=== PATIENT | female | born 1955 | race Two or more races ===

== ENCOUNTER 2017-03-25 00:34 | Inpatient (IN) | payer MEDICAID, OTHER ==
[~2017-03-25] VITALS: Ht 160 cm; Wt 62.0 kg
[2017-03-25] MEDS ORDERED: MORPHINE SULFATE 4 MG/ML SYRG IV ONE (07:00)
[2017-03-25] MEDS ORDERED: ONDANSETRON HCL 4 MG/2 ML VIAL IV ONE (07:00)
[2017-03-25 07:12] LABS: Basophils # (auto) 0 uL; Basophils % (auto) 0.3 % (0.0-2.0); CONDITION Y; Eosinophils # (auto) 0.2 uL; Eosinophils % (auto) 2.6 % (0.0-7.0); Hematocrit 40.1 % (36.0-46.0); Hemoglobin 13.7 g/dL (12.2-16.2); Lymphocytes # (auto) 2.1 uL; Lymphocytes % (auto) 28.4 % (10.0-50.0); Mean Corpuscular Hemoglobin 30.9 pg (28.0-32.0); Mean Corpuscular Hgb Conc. 34.2 g/dL (32.0-36.0); Mean Corpuscular Volume 90.4 fL (80.0-100.0); Mean Platelet Volume 7.9 fL (7.4-10.4); Monocytes # (auto) 0.5 uL; Monocytes % (auto) 6.7 % (0.0-12.0); Neutrophils # (auto) 4.6 uL; Platelet Count (auto) 286 10^3/uL (140-450); Red Cell Distribution Width 13.7 % (11.6-16.0); White Blood Cell 7.4 10^3/uL (4.4-10.8)
[2017-03-25 07:43] LABS: Albumin 3.9 g/dL (3.4-5.0); BUN/Creatinine Ratio 8.4; Bilirubin, Total 0.4 mg/dL (0.2-1.0); Calcium 8.9 mg/dL (8.5-10.1); Potassium 3.8 mmol/L (3.5-5.1); Total Protein 7.3 g/dL (6.4-8.2)
[2017-03-25] MEDS ORDERED: PROMETHAZINE HCL 25 MG/ML 1ML IV PRN (08:30)
[2017-03-25] MEDS ORDERED: ALBUTEROL SULF 2.5 MG/0.5ML(0.5%) NEB SOLN NEB PRN (08:30)
[2017-03-25] MEDS ORDERED: LORazepam 0.5 MG TAB PO PRN (08:30)
[2017-03-25] MEDS ORDERED: NITROGLYCERIN 0.4 MG SL TAB SL PRN (08:30)
[2017-03-25] MEDS ORDERED: LACTULOSE 20Gm/30ML SOLN PO PRN (08:30)
[2017-03-25] MEDS ORDERED: TEMAZEPAM 15 MG CAP PO PRN (08:30)
[2017-03-25] MEDS ORDERED: MORPHINE SULFATE 4 MG/ML SYRG IV PRN (08:30)
[2017-03-25] MEDS ORDERED: ACETAMINOPHEN 500 MG TAB PO PRN (08:30)
[2017-03-25] MEDS ORDERED: MORPHINE SULF INJ 2 MG/ML SYRINGE 1ML IV PRN (08:30)
[2017-03-25 09:01] VITALS: BP 143/87
[2017-03-25] MEDS: SODIUM CHLORIDE 0.9% 1,000 ML IV SCH ×2 (09:42→22:12)
[2017-03-25] MEDS: ALBUTEROL SULF 2.5 MG/0.5ML(0.5%) NEB SOLN NEB SCH ×2 (11:48→19:10)
[2017-03-25 13:00] VITALS: BP 145/71
[2017-03-25] MEDS: HYDROcodone-ACET 5/325MG TAB PO PRN ×2 (15:12→22:12)
[2017-03-25 17:42] VITALS: BP 112/81
[2017-03-25 22:16] VITALS: BP 142/77
[2017-03-26] MEDS: ALBUTEROL SULF 2.5 MG/0.5ML(0.5%) NEB SOLN NEB SCH ×4 (00:29→19:09)
[2017-03-26 05:20] VITALS: BP 135/72
[2017-03-26 07:50] VITALS: BP 148/74
[2017-03-26] MEDS: HYDROcodone-ACET 5/325MG TAB PO PRN (08:17)
[2017-03-26 09:00] VITALS: BP 148/74
[2017-03-26] MEDS: SODIUM CHLORIDE 0.9% 1,000 ML IV SCH ×2 (09:19→22:31)
[2017-03-26 12:06] VITALS: BP 135/86
[2017-03-26 16:44] VITALS: BP 112/76
[2017-03-26 23:41] VITALS: BP 135/81
[2017-03-27] MEDS: ALBUTEROL SULF 2.5 MG/0.5ML(0.5%) NEB SOLN NEB SCH ×3 (00:35→12:30)
[2017-03-27 05:05] VITALS: BP 131/78
[2017-03-27 09:00] VITALS: BP 138/77
[2017-03-27] MEDS: HYDROcodone-ACET 5/325MG TAB PO PRN (10:17)
[2017-03-27] MEDS: SODIUM CHLORIDE 0.9% 1,000 ML IV SCH (10:18)
[2017-03-27 13:00] VITALS: BP 132/82
== END 2017-03-27 18:30 | disposition home or self-care (01) | DRG 135 ==
LOC: ER 00:45 → EDBD 00:45 → TELE 00:46 → EEVIPCON 00:46 → TELE-WESTW 13:01
PROVIDERS: ADMIT Internal Medicine; ATTEND Internal Medicine Pulmonary Disease
DX: S22.41XA Multiple fractures of ribs, right side, initial encounter for closed fracture (principal); J44.9 Chronic obstructive pulmonary disease, unspecified; I10 Essential (primary) hypertension; S00.11XA Contusion of right eyelid and periocular area, initial encounter; F17.210 Nicotine dependence, cigarettes, uncomplicated; F10.20 Alcohol dependence, uncomplicated; G89.29 Other chronic pain; Z80.0 Family history of malignant neoplasm of digestive organs; Z82.49 Family history of ischemic heart disease and other diseases of the circulatory system; Y08.89XA Assault by other specified means, initial encounter; Y93.89 Activity, other specified; Y92.89 Other specified places as the place of occurrence of the external cause; Z98.51 Tubal ligation status; Z79.899 Other long term (current) drug therapy
CPT/HCPCS: 36415; 70450; 70486; 71020; 71111; 80053; 85025; 94640; 94761; 96374; 96375; J2405

== ENCOUNTER 2020-02-16 18:53 | Emergency (ER) | payer MEDICAID ==
[~2020-02-16] VITALS: Ht 162.6 cm; Wt 57.6 kg
[2020-02-16 19:40] VITALS: BP 157/94
== END 2020-02-17 03:21 | disposition left against medical advice (07) ==
LOC: ER 19:02
DX: R21 Rash and other nonspecific skin eruption (principal); Z53.21 Procedure and treatment not carried out due to patient leaving prior to being seen by health care provider

== ENCOUNTER 2020-02-19 16:02 | Inpatient (IN) | payer MEDICAID ==
[~2020-02-19] VITALS: Ht 162.6 cm; Wt 56.0 kg
[2020-02-19] MEDS ORDERED: SODIUM CHLORIDE 0.9% 1,000 ML IV ONE (16:25)
[2020-02-19 17:03] LABS: Basophils # (auto) 0.1 10 ^3/uL (0-0.2); Basophils % (auto) 0.6 % (0.0-2.0); Eosinophils # (auto) 0.1 10 ^3/uL (0-0.8); Hematocrit 39.6 % (36.0-46.0); Hemoglobin 13.4 g/dL (12.2-16.2); Lymphocytes # (auto) 1.5 10 ^3/uL (0.4-5.4); Mean Corpuscular Hgb Conc. 33.8 g/dL (32.0-36.0); Mean Corpuscular Volume 88.8 fL (80.0-100.0); Monocytes % (auto) 7.8 % (0.0-12.0); Neutrophils # (auto) 9.7 10 ^3/uL (1.6-8.6); Neutrophils % (auto) 78.6 % (37.0-80.0); Platelet Count (auto) 301 10^3/uL (140-450); Red Blood Cells 4.46 10^6/uL (4.0-5.20); Red Cell Distribution Width 13.1 % (11.8-14.3); White Blood Cell 12.3 10^3/uL (4.4-10.8)
[2020-02-19 17:15] LABS: Albumin 3.7 g/dL (3.4-5.0); BUN/Creatinine Ratio 10.1; Potassium 3.7 mmol/L (3.5-5.1)
[2020-02-19] MEDS ORDERED: CLINDAMYCIN 600MG IV 50 ML IV ONE (17:15)
[2020-02-19] MEDS ORDERED: cefTRIAXone 1GM/50ML D5W 50 ML IV ONE (17:15)
[2020-02-19 17:18] LABS: Bilirubin, Total 0.6 mg/dL (0.2-1.0)
[2020-02-19] MEDS ORDERED: HYDROcodone-ACET 5/325MG TAB PO PRN (20:30)
[2020-02-19] MEDS ORDERED: DOCUSATE SOD 100 MG CAP PO PRN (20:30)
[2020-02-19] MEDS ORDERED: LORazepam 0.5 MG TAB PO PRN (20:30)
[2020-02-19] MEDS ORDERED: MORPHINE SULF INJ 2 MG/ML SYRINGE 1ML IV PRN ×2 (20:30)
[2020-02-19] MEDS ORDERED: VANCOMYCIN PER PHARMACY 1,000 MG IV SCH (20:30)
[2020-02-19] MEDS ORDERED: ONDANSETRON HCL 4 MG/2 ML VIAL IV PRN (20:30)
[2020-02-19] MEDS ORDERED: NITROGLYCERIN 0.4 MG SL TAB SL PRN ×2 (20:30)
[2020-02-19 21:23] LABS: Cholesterol 172 mg/dL (< 200)
[2020-02-19 21:25] LABS: HDL Cholesterol 66 mg/dL (40-59); LDL Cholesterol 80 mg/dL (< 100); Triglycerides 89 mg/dL (< 150)
--- NOTE | 2020-02-19 22:00 | NUR ---
Telemetry admit from ER G[facility] admitted to Telemetry unit after SBAR received. Patient oriented to IVY CASTELLANOS, RN primary RN, MST unit, room 218, bed B, and unit policies regarding patient care and visiting hours. Patient now on continuous telemetry monitoring, tele box #34 and telemetry reading on arrival to unit is normal SR . Patient weighed by bed scale and encouraged to call if they need something. All questions and concerns addressed, patient verbalized understanding. Note: Patient able to turn in bed independently, bed in lowest locked position, side rails up x2, and call light within reach. Will continue to monitor Q1hr PRN.
[2020-02-19] MEDS: VANCOMYCIN 1GM/250ML 250 ML IV SCH (23:22)
[2020-02-19] MEDS: FAMOTIDINE (10MG/ML) 2ML VL IV SCH (23:23)
[2020-02-19] MEDS: MORPHINE SULF INJ 2 MG/ML SYRINGE 1ML IV PRN (23:23)
[2020-02-20] MEDS ORDERED: PIPERACILLIN-TAZOB 3.375GM 3.375 GM in D5W 5% 100 ML IV SCH ×2
[2020-02-20] MEDS: PIPERACILLIN-TAZOB 3.375GM 100 ML IV SCH ×2 (01:18→06:56)
[2020-02-20] MEDS ORDERED: SODIUM CHLORIDE 0.9% 1,000 ML IV SCH (03:15)
[2020-02-20] MEDS ORDERED: cloNIDine HCL 0.1 MG TAB PO PRN (03:15)
[2020-02-20 05:13] VITALS: BP 127/72
[2020-02-20] MEDS ORDERED: IPRATROPIUM BROM 0.5 MG/2.5ML INH SOL NEB SCH (06:00)
[2020-02-20] MEDS ORDERED: FUROSEMIDE 20 MG/2 ML VIAL IV SCH (06:00)
[2020-02-20 06:25] LABS: Basophils # (auto) 0 10 ^3/uL (0-0.2); Basophils % (auto) 0.4 % (0.0-2.0); Eosinophils # (auto) 0.2 10 ^3/uL (0-0.8); Eosinophils % (auto) 2.3 % (0.0-7.0); Hematocrit 35.1 % (36.0-46.0); Hemoglobin 11.9 g/dL (12.2-16.2); Lymphocytes # (auto) 2.1 10 ^3/uL (0.4-5.4); Lymphocytes % (auto) 23.1 % (10.0-50.0); Mean Corpuscular Hgb Conc. 33.9 g/dL (32.0-36.0); Mean Corpuscular Volume 88.5 fL (80.0-100.0); Monocytes # (auto) 1.1 10 ^3/uL (0-1.3); Monocytes % (auto) 12.2 % (0.0-12.0); Neutrophils # (auto) 5.6 10 ^3/uL (1.6-8.6); Nucleated Red Blood Cells % 0.1 %; Platelet Count (auto) 258 10^3/uL (140-450); Red Blood Cells 3.97 10^6/uL (4.0-5.20); Red Cell Distribution Width 13.1 % (11.8-14.3)
[2020-02-20 06:38] LABS: INR 1.01 (0.9-1.15); Partial Thromboplastin Time 28.5 sec (23.64-32.05); Potassium 3.9 mmol/L (3.5-5.1)
[2020-02-20 06:51] LABS: BUN/Creatinine Ratio 8.8; Bilirubin, Total 0.8 mg/dL (0.2-1.0); Calcium 8.3 mg/dL (8.5-10.1); Magnesium 2.4 mg/dL (1.6-2.6); Phosphorus 3.2 mg/dL (2.5-4.90); Total Protein 6.6 g/dL (6.4-8.2)
[2020-02-20] MEDS: MORPHINE SULF INJ 2 MG/ML SYRINGE 1ML IV PRN ×2 (07:43→22:12)
[2020-02-20 08:30] VITALS: BP 113/53
[2020-02-20] MEDS ORDERED: cefTRIAXone 1GM/50ML D5W 50 ML IV ONE (10:15)
[2020-02-20] MEDS: FAMOTIDINE (10MG/ML) 2ML VL IV SCH (10:20)
[2020-02-20] MEDS: ENOXAPARIN SOD 40 MG/0.4 ML SYRINGE SC SCH (10:21)
--- NOTE | 2020-02-20 11:06 | NUR ---
WOUND CARE NOTE: Wound care in to see patient per wound care request regarding multiple wounds that are noted present on admission. Bedside nurse took photograph of patient's wounds upon admission for reference. Patient is 64 y/o female with admitting diagnosis of Rt Lower Extremity Cellulitis. Patient is resting in bed in Rm. 218A. Patient is awake, alert and oriented. She's self turning and repositioning and her Nima score is 20. Noted patient's RLE has multi open and scabbed wounds with yellow blistering at wound edges. Mira wound is bright red and edematous, minimal serous drainage noted, no odor noted. Patient reported that she has had the wounds for couple of days.She added that she got bitten by spider twice. The first one was a week a go but nothing like this happened. She continued further that On Sunday morning she got bitten by spider again and noted wounds on her Rt. leg at night time. Cleansed patient's RLE wounds with wound cleanser, patted dry with gauze, applied Thera honey gel, covered with abd pad and secured with stockinette. Two dry scabbed wounds also noted to her L lateral knee, area is clean and dry, left open to air. All wound stats documented in nurse intervention wound assessment part. Patient tolerated well and denies any other wound. RECOMMENDATION: Nursing to continue Daily/PRN dressing change to RLE wounds per MD order, Dietary consult due to presence of wounds, elevate affected extremity on pillows; continue monitoring by wound care while patient is hospitalized. Addendum: 02/20/20 at 1447 by Selena Beaulieu RN Amended: Links added.
[2020-02-20 12:11] LABS: Urine WBC None Seen /hpf (0 - 5)
[2020-02-20 12:33] VITALS: BP 97/55
[2020-02-20 12:40] LABS: Urine Bacteria NONE SEEN /hpf (None Seen); Urine Blood Negative /uL (Negative); Urine Specific Gravity 1.007 (1.001-1.035)
[2020-02-20 12:42] LABS: Alcohol, Urine < 3.0 mg/dL (0-10); Amphetamine Screen, Urine NEGATIVE (NEGATIVE); Barbiturate Scree,Urine NEGATIVE (NEGATIVE); Benzodiazephine Screen, Urine NEGATIVE (NEGATIVE); Cannabinoid Screen, Urine NEGATIVE (NEGATIVE); Cocaine Screen, Urine NEGATIVE (NEGATIVE); Opiate Scree,Urine NEGATIVE (NEGATIVE); Phencyclidine Screen, Urine NEGATIVE (NEGATIVE)
--- NOTE | 2020-02-20 15:55 | NUR ---
ss consult Per ss consult advanced directive information. Patient has been provided with advanced directive. Addendum: 02/20/20 at 1556 by Cynthia DORANTES Amended: Links added.
--- NOTE | 2020-02-20 16:34 | NUR ---
PATIENT COMPLAINING OF ACID REFLUX ALONG WITH NECK TIGHTENING AND HEADACHE. EKG PERFORMED AND SHOWN TO Shanthi QIU. RECEIVED NEW ORDERS FOR PROTONIX. WILL FOLLOW THROUGH
[2020-02-20] MEDS ORDERED: PANTOPRAZOLE 40 MG TAB PO ONE (16:45)
[2020-02-20] MEDS: ALUM & MAG HYDROX-SIMETH LIQ(MAALOX) 30 ML PO PRN (17:00)
[2020-02-20 17:05] VITALS: BP 116/68
--- NOTE | 2020-02-20 19:15 | NUR ---
OPENING SHIFT NOTE: ASSUMED CARE OF PATIENT. PATIENT IS ALERT AND ORIENTED X 4, NO S/S OF SOB OR DISTRESS AND PATIENT DENIES PAIN. BED IS IN LOWEST LOCKED POSITION WITH TWO SIDE RAILS RAISED AND CALL LONG WITHIN REACH. INSTRUCTED ON POC AND ENCOURAGED TO USE CALL LIGHT FOR ASSISTANCE, ALL QUESTIONS AND CONCERNS ADDRESSED, PATIENT VERBALIZES UNDERSTANDING. WILL CONTINUE TO MONITOR Q1 HR AND PRN.
[2020-02-20 20:00] VITALS: BP 109/66
[2020-02-20 22:00] VITALS: BP 109/66
[2020-02-20] MEDS: VANCOMYCIN 1GM/250ML 250 ML IV SCH (22:11)
[2020-02-20] MEDS: ATORVASTATIN 20 MG TAB PO SCH (22:11)
[2020-02-21] MEDS: ALUM & MAG HYDROX-SIMETH LIQ(MAALOX) 30 ML PO PRN (00:37)
[2020-02-21 05:00] VITALS: BP 103/54
--- NOTE | 2020-02-21 07:30 | NUR ---
RECEIVED REPORT FROM NIGHT NURSE. PATIENT RESTING IN BED, NO DISTRESS NOTED. WILL CONTINUE TO MONITOR.
[2020-02-21 07:48] LABS: Basophils # (auto) 0 10 ^3/uL (0-0.2); Basophils % (auto) 0.3 % (0.0-2.0); Eosinophils # (auto) 0.2 10 ^3/uL (0-0.8); Eosinophils % (auto) 3.7 % (0.0-7.0); Hematocrit 35.4 % (36.0-46.0); Hemoglobin 12.1 g/dL (12.2-16.2); Lymphocytes # (auto) 1.6 10 ^3/uL (0.4-5.4); Lymphocytes % (auto) 26.2 % (10.0-50.0); Mean Corpuscular Hemoglobin 30.3 pg (28.0-32.0); Mean Corpuscular Hgb Conc. 34.2 g/dL (32.0-36.0); Mean Corpuscular Volume 88.6 fL (80.0-100.0); Monocytes # (auto) 0.7 10 ^3/uL (0-1.3); Monocytes % (auto) 11.7 % (0.0-12.0); Neutrophils # (auto) 3.6 10 ^3/uL (1.6-8.6); Neutrophils % (auto) 58.1 % (37.0-80.0); Platelet Count (auto) 275 10^3/uL (140-450); Red Blood Cells 3.99 10^6/uL (4.0-5.20); Red Cell Distribution Width 13.3 % (11.8-14.3); White Blood Cell 6.2 10^3/uL (4.4-10.8)
[2020-02-21 08:03] LABS: BUN/Creatinine Ratio 14.3; Calcium 8.5 mg/dL (8.5-10.1); Potassium 4.6 mmol/L (3.5-5.1)
[2020-02-21 09:00] VITALS: BP 101/65
[2020-02-21] MEDS ORDERED: cefTRIAXone 1GM/50ML D5W 50 ML IV SCH (09:00)
[2020-02-21] MEDS: PANTOPRAZOLE 40 MG TAB PO SCH (10:13)
[2020-02-21] MEDS: ENOXAPARIN SOD 40 MG/0.4 ML SYRINGE SC SCH (10:13)
[2020-02-21 13:00] VITALS: BP 108/64
[2020-02-21 17:00] VITALS: BP 132/76
[2020-02-21 20:00] VITALS: BP 122/69
[2020-02-21 22:00] VITALS: BP 122/69
[2020-02-21] MEDS: MORPHINE SULF INJ 2 MG/ML SYRINGE 1ML IV PRN (22:21)
[2020-02-21] MEDS: ATORVASTATIN 20 MG TAB PO SCH (22:21)
[2020-02-21] MEDS: VANCOMYCIN 1GM/250ML 250 ML IV SCH (22:21)
[2020-02-22 05:00] VITALS: BP 119/64
[2020-02-22 06:42] LABS: Basophils # (auto) 0 10 ^3/uL (0-0.2); Basophils % (auto) 0.5 % (0.0-2.0); Eosinophils # (auto) 0.2 10 ^3/uL (0-0.8); Eosinophils % (auto) 3.6 % (0.0-7.0); Hematocrit 36.2 % (36.0-46.0); Hemoglobin 12.2 g/dL (12.2-16.2); Lymphocytes # (auto) 1.6 10 ^3/uL (0.4-5.4); Lymphocytes % (auto) 30.9 % (10.0-50.0); Mean Corpuscular Hemoglobin 29.6 pg (28.0-32.0); Mean Corpuscular Hgb Conc. 33.7 g/dL (32.0-36.0); Mean Corpuscular Volume 87.9 fL (80.0-100.0); Monocytes # (auto) 0.6 10 ^3/uL (0-1.3); Neutrophils # (auto) 2.8 10 ^3/uL (1.6-8.6); Platelet Count (auto) 289 10^3/uL (140-450); Red Blood Cells 4.11 10^6/uL (4.0-5.20); White Blood Cell 5.2 10^3/uL (4.4-10.8)
[2020-02-22 07:02] LABS: BUN/Creatinine Ratio 17.9; Calcium 9.1 mg/dL (8.5-10.1); Potassium 4.5 mmol/L (3.5-5.1)
[2020-02-22 09:00] VITALS: BP 134/72
[2020-02-22] MEDS: ENOXAPARIN SOD 40 MG/0.4 ML SYRINGE SC SCH (10:00)
[2020-02-22] MEDS: PANTOPRAZOLE 40 MG TAB PO SCH (10:00)
[2020-02-22 13:00] VITALS: BP 137/77
[2020-02-22] MEDS: ceFAZolin 1GM/50ML 50 ML IV SCH ×2 (13:43→21:45)
[2020-02-22 17:00] VITALS: BP 134/74
--- NOTE | 2020-02-22 19:45 | NUR ---
[facility] states they want to leave the floor Against Medical Advice (AMA) to go outside and smoke. Patient encouraged to stay on floor and not smoke. Dr notified of patient's wishes. Patient advised of the risks and benefits of leaving AMA. Patient verbalized understanding and signed required AMA form.
[2020-02-22] MEDS: ATORVASTATIN 20 MG TAB PO SCH (21:45)
[2020-02-22 22:00] VITALS: BP 139/87
[2020-02-23 05:00] VITALS: BP 36/84
[2020-02-23] MEDS: ceFAZolin 1GM/50ML 50 ML IV SCH ×2 (05:26→14:00)
--- NOTE | 2020-02-23 08:15 | NUR ---
Opening Shift Note Assumed care of patient, awake, alert, and oriented. No S/S of distress/SOB or pain. Bed in lowest/locked position, bed rails upx2, call light within reach. Instructed on POC and to call for assist PRN. Will continue to monitor for changes Q1hr and PRN.
[2020-02-23 09:00] VITALS: BP 110/83
[2020-02-23] MEDS ORDERED: CEPH-37 PO (09:30)
[2020-02-23] MEDS: ENOXAPARIN SOD 40 MG/0.4 ML SYRINGE SC SCH (09:50)
[2020-02-23] MEDS: PANTOPRAZOLE 40 MG TAB PO SCH (09:51)
--- NOTE | 2020-02-23 12:22 | NUR ---
WOUND CARE WOUND CARE PERFORMED PER MD ORDERS. EDUCATED PATIENT ON WOUND CARE TO PERFORM AT HOME. PATIENT VERBALIZED UNDERSTANDING. WOUND CARE SUPPLIES GIVEN TO PATIENT FOR HOME WOUND CARE.
--- NOTE | 2020-02-23 14:18 | NUR ---
Discharge instructions given as ordered. Encourage to follow up with PMD as instructed. All questions and concerns addressed. Patient verbalized understanding. Wound care supplies sent with patient. IV removed with catheter intact, pressure dressing applied. Patient taken to vehicle via wheelchair with all personal belongings, accompanied by staff. No distress noted at time of departure. Patient being transported by [facility]
== END 2020-02-23 14:20 | disposition home or self-care (01) | DRG 383 ==
LOC: ER 16:02 → TELE-CENTR 16:03 → CENTRAL 02-20 11:24
PROVIDERS: ADMIT Hospitalist; ATTEND Internal Medicine
DX: L03.115 Cellulitis of right lower limb (principal); L97.911 Non-pressure chronic ulcer of unspecified part of right lower leg limited to breakdown of skin; J44.9 Chronic obstructive pulmonary disease, unspecified; I10 Essential (primary) hypertension; F17.210 Nicotine dependence, cigarettes, uncomplicated; E78.5 Hyperlipidemia, unspecified; Z98.51 Tubal ligation status; Z82.49 Family history of ischemic heart disease and other diseases of the circulatory system; Z79.899 Other long term (current) drug therapy; B95.0 Streptococcus, group A, as the cause of diseases classified elsewhere
CPT/HCPCS: 36415; 71046; 80048; 80053; 80061; 80307; 81001; 83036; 83605; 83735; 84100; 84484; 85025; 85610; 85730; 87040; 87086; 87205; 93970; G0378; J0690; J0696; J2543; J3490